=== PATIENT | male | born 1965 | race Caucasian/White ===

== ENCOUNTER 2019-09-15 00:22 | Emergency (ER) | payer OTHER ==
[~2019-09-15] VITALS: Ht 170.2 cm; Wt 107.5 kg
[~2019-09-15 00:22] MED LIST: CIPRO I.V.400 MG/201 PO; ULTRACET PO
[2019-09-15] MEDS ORDERED: CARVEDILOL12.5 M1 (00:37)
[2019-09-15] MEDS ORDERED: SIMVASTATIN80 MG (00:37)
[2019-09-15] MEDS ORDERED: GLIMEPIRIDE4 MG (00:37)
[2019-09-15] MEDS ORDERED: TRILIPIX135 MG (00:38)
[2019-09-15] MEDS ORDERED: FORTAMET1000 MG (00:38)
[2019-09-15] MEDS ORDERED: FARXIGA10 MG (00:38)
[2019-09-15] MEDS ORDERED: ALTACE10 MG (00:38)
[2019-09-15] MEDS ORDERED: ZYNCOF 20-400120 ML PO (04:57)
[2019-09-15] MEDS ORDERED: ALBUTEROL2.5 MG/3 M IH (04:57)
[2019-09-15] MEDS ORDERED: KETO10TA2 PO (04:57)
[2019-09-15] MEDS ORDERED: ZITHROMAX500 MG PO (04:57)
== END 2019-09-15 05:22 | disposition home or self-care (01) ==
LOC: ER 00:22
DX: J40 Bronchitis, not specified as acute or chronic (principal); K05.319 Chronic periodontitis, localized, unspecified severity

== ENCOUNTER → 2020-12-25 08:00 | Outpatient (CLI) | payer OTHER ==
[~2020-12-25 08:00] MED LIST changes: +ALBUTEROL2.5 MG/3 M IH; +ALTACE10 MG; +CARVEDILOL12.5 M1; +FARXIGA10 MG; +FORTAMET1000 MG; +GLIMEPIRIDE4 MG; +KETO10TA2 PO; +SIMVASTATIN80 MG; +TRILIPIX135 MG; +ZITHROMAX500 MG PO; +ZYNCOF 20-400120 ML PO
== END | disposition home or self-care (01) ==
LOC: PPH VACUNA 08:00
DX: Z23 Encounter for immunization (principal)

== ENCOUNTER 2022-04-25 23:50 | Emergency (ER) | payer OTHER ==
[~2022-04-25] VITALS: Ht 170.2 cm; Wt 103.0 kg
== END 2022-04-26 03:55 | disposition home or self-care (01) ==
LOC: ER 23:50
DX: E86.0 Dehydration (principal); Z91.013 Allergy to seafood; I10 Essential (primary) hypertension; E11.9 Type 2 diabetes mellitus without complications; Z79.84 Long term (current) use of oral hypoglycemic drugs

== ENCOUNTER 2024-03-09 16:17 | Inpatient (IN) | payer OTHER ==
[~2024-03-09] VITALS: Ht 177.8 cm; Wt 95.3 kg
[2024-03-09] MEDS ORDERED: KETOROLAC TROMETHAMINE 15 MG VIAL IV STA (19:01)
[2024-03-09] MEDS ORDERED: 0.9 % SODIUM CHLORIDE 1,000 ML IV STA (19:01)
[2024-03-09] MEDS ORDERED: KETOROLAC TROMETHAMINE 30 MG VIAL ONE (19:08)
[2024-03-09 20:06] LABS: HEMATOCRIT 45.7 % (39.0-48.0); HEMOGLOBIN 15.7 g/dL (13-16.00); MEAN CELL VOLUME 85.9 fL (80.0-100.00); MEAN CORPUSCULAR HEMOGLOBIN 29.4 pg (27.00-32.0); MEAN CORPUSCULAR HGB CONC 34.3 g/dl (32.0-36.0); PLATELET COUNT 234 K/uL (150-450); RED BLOOD COUNT 5.32 M/uL (4.00-6.00)
[2024-03-09 20:19] LABS: PH,URINE 5.5 (5.0-8.0); URINE APPEARANCE Clear; URINE BILIRRUBIN Small (NEGATIVE); URINE BLOOD Negative; URINE COLOR Orange; URINE GLUCOSE Negative (NEGATIVE); URINE LEUKOCYTE Trace; URINE NITRATE Negative; URINE PROTEIN Trace (NEGATIVE)
[2024-03-09 20:25] LABS: URINE BACTERIA 6.2 uL (0.0-1933); URINE WBC 4.1 uL (0.0-23.2)
[2024-03-09 20:49] LABS: ALBUMIN 2.8 gm/dL (3.4-5.0); BILIRUBIN TOTAL 1.35 mg/dL (0.3-1.2); CALCIUM 8.5 mg/dL (8.5-10.1); CREATININE SERUM 0.62 mg/dL (0.70-1.30); GFR 132.33; GLOBULINA 3.9 G/DL (2.4-3.5); POTASSIUM 4.5 mEq/L (3.5-5.1); TOTAL PROTEIN 6.7 gm/dL (6.4-8.2)
[2024-03-09] MEDS ORDERED: DIPHENHYDRAMINE HCL 50 MG/ML VIAL 1ML IV STA (22:33)
[2024-03-09] MEDS ORDERED: METHYLPREDNISOLONE SOD SUCC 125 MG VIAL IV STA (22:34)
[2024-03-09] MEDS ORDERED: DIPHENHYDRAMINE HCL 50 MG/ML VIAL 1ML ONE (22:39)
[2024-03-09] MEDS ORDERED: METHYLPREDNISOLONE SOD SUCC 125 MG VIAL ONE (22:40)
[2024-03-09] MEDS ORDERED: FUROsemide 20 MG/2 ML VIAL IV SCH (22:55)
[2024-03-09] MEDS ORDERED: INSULIN LISPRO 1,000 UNIT/10 ML UNITS SUBCUTANEO PRN (23:00)
[2024-03-09] MEDS ORDERED: LACTULOSE 20 G/30 ML BLIST.PACK PO ONE (23:00)
[2024-03-09] MEDS ORDERED: DEXTROSE 50 % IN WATER 0.5 G/ML DISP.SYRIN IV PRN (23:00)
[2024-03-09] MEDS ORDERED: MORPHINE SULFATE 2 MG/ML CARTRIDGE IV PRN (23:00)
[2024-03-10] MEDS ORDERED: ALBUMIN HUMAN-25 0.25GM/ML (50ML) VIAL IV SCH (01:00)
[2024-03-10 02:35] LABS: D DIMER 2.72 MG/L; PARTIAL THROMBOPLASTIN TIME 33.5 SECONDS (22.0-34.0)
[2024-03-10 02:36] LABS: INR 1.17; PROTHROMBIN TIME 12.1 SECONDS (9.0-11.5)
[2024-03-10 03:03] LABS: ALBUMIN 2.6 gm/dL (3.4-5.0); BILIRUBIN TOTAL 1.03 mg/dL (0.3-1.2); BILIRUBIN,CONJUGATED 0.47 mg/dL (0.0-0.2); BILIRUBIN,UNCONJUGATED 0.56 mg/dL (0.0-0.6); TOTAL PROTEIN 6.2 gm/dL (6.4-8.2)
[2024-03-10] MEDS ORDERED: LACTULOSE 20 G/30 ML BLIST.PACK ONE (03:52)
[2024-03-10] MEDS ORDERED: FUROsemide 20 MG/2 ML VIAL ONE (03:52)
[2024-03-10] MEDS ORDERED: SPIRONOLACTONE 25 MG TABLET PO SCH (09:00)
[2024-03-10] MEDS ORDERED: PANTOPRAZOLE SODIUM 40 MG/VIAL VIAL IV SCH (09:00)
[2024-03-10] MEDS ORDERED: RAMIPRIL 5 MG CAPSULE PO SCH (09:00)
[2024-03-10] MEDS ORDERED: DEXTROSE 50 % IN WATER 0.5 G/ML VIAL IV PRN (09:30)
[2024-03-10] MEDS ORDERED: KETOROLAC TROMETHAMINE 30 MG VIAL IV PRN (15:30)
[2024-03-10] MEDS ORDERED: SIMVASTATIN 40 MG TABLET PO SCH (17:00)
[2024-03-10 19:28] LABS: TP PERITONEAL FLUID 3.3 g/dl
[2024-03-10] MEDS ORDERED: TRAMADOL HCL 50 MG TABLET PO SCH (21:00)
[2024-03-12] MEDS ORDERED: METHYLPREDNISOLONE SOD SUCC 125 MG VIAL IV SCH (13:45)
[2024-03-12] MEDS ORDERED: DIPHENHYDRAMINE HCL 50 MG/ML VIAL 1ML IV SCH (13:45)
[2024-03-13] MEDS ORDERED: METHYLPREDNISOLONE SOD SUCC 125 MG VIAL IV NR (08:30)
[2024-03-13] MEDS ORDERED: DIPHENHYDRAMINE HCL 50 MG/ML VIAL 1ML IV NR (08:30)
[2024-03-13] MEDS ORDERED: TRAMADOL HCL 50 MG TABLET PO SCH (13:00)
[2024-03-13] MEDS ORDERED: SPIRONOLACTONE 50 MG TABLET PO SCH (17:00)
[2024-03-13] MEDS ORDERED: LACTULOSE 20 G/30 ML BLIST.PACK PO SCH (21:00)
[2024-03-14] MEDS ORDERED: PANTOPRAZOLE SODIUM 40 MG TABLET.DR PO SCH (09:00)
[2024-03-14 12:44] LABS: HEMATOCRIT 46.3 % (39.0-48.0); HEMOGLOBIN 15.7 g/dL (13-16.00); MEAN CELL VOLUME 85.1 fL (80.0-100.00); MEAN CORPUSCULAR HEMOGLOBIN 28.8 pg (27.00-32.0); MEAN CORPUSCULAR HGB CONC 33.8 g/dl (32.0-36.0); PLATELET COUNT 187 K/uL (150-450); RED BLOOD COUNT 5.44 M/uL (4.00-6.00); RED CELL DISTRIBUTION WIDTH 13.2 % (11.5-14.5)
[2024-03-14 13:08] LABS: ALBUMIN 2.9 gm/dL (3.4-5.0); BILIRUBIN TOTAL 0.59 mg/dL (0.3-1.2); CALCIUM 8.8 mg/dL (8.5-10.1); CREATININE SERUM 0.69 mg/dL (0.70-1.30); GFR 116.96; GLOBULINA 3.6 G/DL (2.4-3.5); POTASSIUM 3.84 mEq/L (3.5-5.1); TOTAL PROTEIN 6.5 gm/dL (6.4-8.2)
[2024-03-14] MEDS ORDERED: FentaNYL CITRATE/PF 50MCG/ML 2ML VIAL IJ ONE (18:30)
[2024-03-14] MEDS ORDERED: MIDAZOLAM HCL 2 MG/2 ML VIAL IV PUSH ONE (18:30)
== END 2024-03-15 12:07 | disposition home or self-care (01) | DRG 375 ==
LOC: ER 16:18 → MEDJ 22:54 → SEC-K 22:54 → MEDJ 03-10 01:17
PROVIDERS: Emergency Medicine; General Practice; Radiology Vascular & Interventional Radiology; ADMIT Internal Medicine; ATTEND Internal Medicine
PROC: BW21ZZZ Computerized Tomography (CT Scan) of Abdomen and Pelvis (ICD-10-PCS; 2024-03-09)
PROC: BW21YZZ Computerized Tomography (CT Scan) of Abdomen and Pelvis using Other Contrast (ICD-10-PCS; 2024-03-09)
PROC: 0W9G3ZZ Drainage of Peritoneal Cavity, Percutaneous Approach (ICD-10-PCS; principal; 2024-03-10)
PROC: BW30ZZZ Magnetic Resonance Imaging (MRI) of Abdomen (ICD-10-PCS; 2024-03-11)
PROC: 0FB13ZX Excision of Right Lobe Liver, Percutaneous Approach, Diagnostic (ICD-10-PCS; 2024-03-14)
DX: C48.2 Malignant neoplasm of peritoneum, unspecified (principal); C22.0 Liver cell carcinoma; K70.31 Alcoholic cirrhosis of liver with ascites; E11.65 Type 2 diabetes mellitus with hyperglycemia; F10.21 Alcohol dependence, in remission; F17.200 Nicotine dependence, unspecified, uncomplicated; I10 Essential (primary) hypertension; Z74.01 Bed confinement status; Z79.84 Long term (current) use of oral hypoglycemic drugs
CPT/HCPCS: 74185

== ENCOUNTER 2024-03-23 16:14 | Inpatient (IN) | payer OTHER ==
[2024-03-23 17:20] LABS: HEMOGLOBIN 16.5 g/dL (13-16.00); MEAN CELL VOLUME 83.6 fL (80.0-100.00); MEAN CORPUSCULAR HEMOGLOBIN 28.7 pg (27.00-32.0); MEAN CORPUSCULAR HGB CONC 34.4 g/dl (32.0-36.0); PLATELET COUNT 308 K/uL (150-450); RED BLOOD COUNT 5.74 M/uL (4.00-6.00); RED CELL DISTRIBUTION WIDTH 12.5 % (11.5-14.5)
[2024-03-23 17:24] LABS: ALBUMIN 2.8 gm/dL (3.4-5.0); BILIRUBIN TOTAL 1.06 mg/dL (0.3-1.2); CALCIUM 8.3 mg/dL (8.5-10.1); CREATININE SERUM 0.86 mg/dL (0.70-1.30); GFR 90.71; GLOBULINA 3.8 G/DL (2.4-3.5); POTASSIUM 5.41 mEq/L (3.5-5.1); TOTAL PROTEIN 6.6 gm/dL (6.4-8.2)
[2024-03-23 17:25] LABS: INR 1.16; PARTIAL THROMBOPLASTIN TIME 34.4 SECONDS (22.0-34.0)
[2024-03-23] MEDS ORDERED: AMINO ACIDS/PROTEIN HYDROLYS 30 ML BLIST.PACK PO SCH (18:04)
[2024-03-23] MEDS ORDERED: MORPHINE SULFATE 4 MG/ML CARTRIDGE IV PRN (18:15)
[2024-03-23] MEDS ORDERED: RINGERS SOLUTION,LACTATED 1,000 ML IV SCH (18:15)
[2024-03-23] MEDS ORDERED: fentaNYL 25 MCG PATCH.TD72 TD STA (18:22)
[2024-03-23] MEDS ORDERED: TEMAZEPAM 15 MG CAPSULE PO SCH (21:00)
[2024-03-23] MEDS ORDERED: FUROsemide 20 MG/2 ML VIAL IV SCH (21:00)
[2024-03-24] MEDS ORDERED: SPIRONOLACTONE 50 MG TABLET PO SCH (09:00)
[2024-03-24] MEDS ORDERED: 0.9 % SODIUM CHLORIDE 1,000 ML IV SCH (10:31)
[2024-03-24 12:46] LABS: CALCIUM 8.2 mg/dL (8.5-10.1); CREATININE SERUM 0.68 mg/dL (0.70-1.30); GFR 118.95; POTASSIUM 4.6 mEq/L (3.5-5.1)
[2024-03-24] MEDS ORDERED: BUTALB/ACETAMINOPHEN/CAFFEINE 1 TAB TABLET PO STA (19:06)
[2024-03-24] MEDS ORDERED: BUTALB/ACETAMINOPHEN/CAFFEINE 1 TAB TABLET PO PRN (19:15)
[2024-03-25] MEDS ORDERED: LACTULOSE 20 G/30 ML BLIST.PACK PO STA (19:55)
[2024-03-25] MEDS ORDERED: LACTULOSE 20 G/30 ML BLIST.PACK PO SCH (19:55)
[2024-03-26 08:35] LABS: HEMATOCRIT 47.5 % (39.0-48.0); HEMOGLOBIN 16.3 g/dL (13-16.00); MEAN CELL VOLUME 83.6 fL (80.0-100.00); MEAN CORPUSCULAR HEMOGLOBIN 28.7 pg (27.00-32.0); MEAN CORPUSCULAR HGB CONC 34.4 g/dl (32.0-36.0); PLATELET COUNT 246 K/uL (150-450); RED BLOOD COUNT 5.68 M/uL (4.00-6.00)
[2024-03-26 08:38] LABS: ALBUMIN 2.4 gm/dL (3.4-5.0); BILIRUBIN TOTAL 1.02 mg/dL (0.3-1.2); CALCIUM 8.3 mg/dL (8.5-10.1); CREATININE SERUM 0.62 mg/dL (0.70-1.30); GFR 132.33; GLOBULINA 3.4 G/DL (2.4-3.5); POTASSIUM 5.11 mEq/L (3.5-5.1); TOTAL PROTEIN 5.8 gm/dL (6.4-8.2)
[2024-03-26 08:43] LABS: INR 1.06; PROTHROMBIN TIME 11.1 SECONDS (9.0-11.5)
[2024-03-26] MEDS ORDERED: TRAMADOL HCL 50 MG TABLET PO STA (14:28)
[2024-03-26] MEDS ORDERED: NA PHOS,M-B/NA PHOS,DI-BA 1 BOTTLE ENEMA RECTAL STA (15:46)
[2024-03-26] MEDS ORDERED: fentaNYL 25 MCG PATCH.TD72 TD SCH (18:00)
[2024-03-26] MEDS ORDERED: TRAMADOL HCL 50 MG TABLET PO SCH ×2 (21:00)
[2024-03-27 07:09] LABS: CALCIUM 8.3 mg/dL (8.5-10.1); CREATININE SERUM 0.64 mg/dL (0.70-1.30); GFR 127.57; POTASSIUM 4.91 mEq/L (3.5-5.1)
[2024-03-27] MEDS ORDERED: HEPARIN SODIUM,PORCINE 5,000 UNITS/ML VIAL ONE (23:40)
[2024-03-30] MEDS ORDERED: MORPHINE SULFATE 4 MG/ML CARTRIDGE IV PRN (12:45)
[2024-03-30] MEDS ORDERED: TRAMADOL HCL 50 MG TABLET PO STA (17:01)
[2024-03-30] MEDS ORDERED: MAG HYDROX/ALUMINUM HYD/SIMETH 30 ML BLIST.PACK PO STA (18:25)
[2024-03-30] MEDS ORDERED: BUTALB-ACETAMI1 EAC2 PO (18:27)
[2024-03-30] MEDS ORDERED: RESTORIL15 MG PO (18:28)
[2024-03-30] MEDS ORDERED: TRAMADOL HCL50 MG PO (18:29)
[2024-03-30] MEDS ORDERED: MORPHINE SULFATE 4 MG/ML CARTRIDGE IV SCH (18:30)
[2024-03-30] MEDS ORDERED: LACTULOSE10 GM/152 PO (18:30)
[2024-03-30] MEDS ORDERED: FENTANYL1 EAC3 TD (18:30)
[2024-03-30] MEDS ORDERED: PROTEINEX-18 LI30 ML PO (18:31)
[2024-03-31] MEDS ORDERED: TRAMADOL HCL 50 MG TABLET PO SCH (01:00)
== END 2024-03-30 20:19 | disposition home or self-care (01) | DRG 436 ==
LOC: SURH 16:14 → MEDI 16:14 → SURH 03-25 11:17
PROVIDERS: ADMIT Internal Medicine Hematology & Oncology; ATTEND Internal Medicine Hematology & Oncology
PROC: 0W9G3ZZ Drainage of Peritoneal Cavity, Percutaneous Approach (ICD-10-PCS; principal; 2024-03-24)
DX: C22.0 Liver cell carcinoma (principal); E87.1 Hypo-osmolality and hyponatremia; J91.0 Malignant pleural effusion; G89.3 Neoplasm related pain (acute) (chronic); E11.65 Type 2 diabetes mellitus with hyperglycemia; I10 Essential (primary) hypertension; K59.09 Other constipation; K70.31 Alcoholic cirrhosis of liver with ascites
CPT/HCPCS: 240

== ENCOUNTER 2024-04-02 13:29 | Inpatient (IN) | payer OTHER ==
[~2024-04-02] VITALS: Ht 170.2 cm; Wt 83.9 kg
[~2024-04-02 13:29] MED LIST changes: +BUTALB-ACETAMI1 EAC2 PO; +FENTANYL1 EAC3 TD; +LACTULOSE10 GM/152 PO; +PROTEINEX-18 LI30 ML PO; +RESTORIL15 MG PO; +TRAMADOL HCL50 MG PO
--- NOTE | 2024-04-02 13:54 | NUR ---
SE RECIBE PTE ALERTA Y ORIENTADO X3 LLEGA EN AMBULANCIA, REFIERE SENTIR NO PODER RESPIRAR. SE LE REALIZA SV SATURACION EN 92%. SE LE REALIZA EKG. PTE REFIERE TENER CANCER DE HIGADO.
[2024-04-02] MEDS ORDERED: NOREPINEPHRINE BITARTRATE 1 MG/ML AMPUL IV ONE ×2 (14:30→14:31)
--- NOTE | 2024-04-02 14:48 | NUR ---
SE RECIBE PACIENTE MASCULINO ALERTA Y ORIENTADO X3, SE COLOCA EN LA CAMA #03 CON BARANDAS ELEVADAS. SE CONECTA A MONITOR CARDIACO Y OXIEMTRIA DE PULSO. SE CANALIZA EN BRAZO DERECHO CON ANGIO #20 SE LE COLOCA LEVOPHED 8MG/250ML D/W 5% BAJANDO A 20ML/HR Y SEGUNDA VENOPUNCION CON ANGIO #20 Y SE LE COLOCA H/L PATENTES LIBRES DE EDEMA Y ENROJECIMIENTO. SE LE JANIE LAS MUETRAS Y SE LE REALIZA EGK Y SE NOTIFICA PARA REALIZAR CT HEATHER LA ORDEN MEDICA.
[2024-04-02 15:19] LABS: HEMATOCRIT 46.2 % (39.0-48.0); HEMOGLOBIN 15.7 g/dL (13-16.00); MEAN CELL VOLUME 83.3 fL (80.0-100.00); MEAN CORPUSCULAR HEMOGLOBIN 28.4 pg (27.00-32.0); PLATELET COUNT 247 K/uL (150-450); RED BLOOD COUNT 5.54 M/uL (4.00-6.00); RED CELL DISTRIBUTION WIDTH 13.3 % (11.5-14.5)
--- NOTE | 2024-04-02 15:34 | NUR ---
SE RECIBE A PTE EN ICU-2. PTE ALERTA Y ORIENTADO X3. SE OBSERVA CONECTADO A MONITOR CARDIACO Y OXIMENTRIA DE PULSO. PTE CON GISSELL INTACTO, CON VENTURY MASK A 50%. PTE CON VENOPUNCIONES EN MANO RT CON ANGIO 20 X2 CON DRIP DE LEVOPHED 8MG/250ML BAJANDO A 20ML/HR. SE OBSERVA ABDOMEN DISTENDIDO. PTE PENDIENTE A CT ABDOMINAL, ENTREGA DE U/A. 1500 SE REALIZAN V/S Y SE DOCUMENTAN, SE REALIZA ABG POR TR BAJO MEDIDAS ASEPTICAS. 1540 PTE REFIERE NAUSEA, SE NOTIFICA A MD CUAL EMITE ORDEN Y SE EJECUTA LA MISMA.
[2024-04-02 15:41] LABS: INR 1.11; PARTIAL THROMBOPLASTIN TIME 33.9 SECONDS (22.0-34.0); PROTHROMBIN TIME 11.6 SECONDS (9.0-11.5)
[2024-04-02 15:50] LABS: ABG PH 7.359 (7.35-7.45); ABG pCO2 29.1 mmHg (35-45); BASE EXCESS -7.9 mmol/l; SaO2 98.4 %; Tco2 16.9 mmol/l
[2024-04-02 15:55] LABS: ALBUMIN 2.4 gm/dL (3.4-5.0); BILIRUBIN TOTAL 0.67 mg/dL (0.3-1.2); CALCIUM 8.8 mg/dL (8.5-10.1); GLOBULINA 4.5 G/DL (2.4-3.5); TOTAL PROTEIN 6.9 gm/dL (6.4-8.2)
[2024-04-02 15:59] LABS: GFR 14.08
[2024-04-02 16:15] LABS: allen test SATISFACTORY; o2 50 %; puncture site RADIAL RIGHT
[2024-04-02 16:19] LABS: CREATININE SERUM 4.32 mg/dL (0.70-1.30); POTASSIUM 7.26 mEq/L (3.5-5.1)
[2024-04-02] MEDS ORDERED: DEXTROSE 50 % IN WATER 0.5 G/ML VIAL IV ONE ×2 (16:30→17:42)
[2024-04-02] MEDS ORDERED: SODIUM POLYSTYRENE SULFONATE 15 G/4 TSP TSP PO ONE (16:30)
[2024-04-02] MEDS ORDERED: CALCIUM GLUCONATE 100 MG/ML VIAL IV ONE (16:30)
[2024-04-02] MEDS ORDERED: INSULIN REGULAR, HUMAN 1,000 UNIT/10 ML UNITS IV ONE (16:30)
[2024-04-02] MEDS ORDERED: ALBUMIN HUMAN-25 0.25GM/ML (50ML) VIAL IV SCH (17:34)
[2024-04-02] MEDS ORDERED: TAMSULOSIN HCL 0.4 MG CAP PO ONE (17:37)
[2024-04-02] MEDS ORDERED: CALCIUM GLUCONATE 100 MG/ML VIAL ONE (17:37)
[2024-04-02] MEDS ORDERED: MEROPENEM 500 MG/VIAL VIAL IV SCH (17:44)
[2024-04-02] MEDS ORDERED: 0.9 % SODIUM CHLORIDE 1,000 ML IV SCH (17:45)
[2024-04-02] MEDS ORDERED: IPRATROPIUM BROMIDE 0.5 MG/2.5 ML AMPUL.NEB IH SCH (17:48)
[2024-04-02] MEDS ORDERED: LEVALBUTEROL HCL 0.63 MG/3 ML SOLUTION IH SCH (17:49)
[2024-04-02] MEDS ORDERED: METHYLPREDNISOLONE SOD SUCC 125 MG VIAL IV ONE (18:00)
[2024-04-02] MEDS ORDERED: IPRATROPIUM BROMIDE 0.5 MG/2.5 ML AMPUL.NEB IH ONE (18:35)
[2024-04-02] MEDS ORDERED: LEVALBUTEROL HCL 0.63 MG/3 ML SOLUTION IH ONE (18:35)
[2024-04-02] MEDS ORDERED: METHYLPREDNISOLONE SOD SUCC 40 MG VIAL ONE (20:41)
[2024-04-02 20:45] LABS: URINE APPEARANCE Cloudy; URINE BILIRRUBIN Small (NEGATIVE); URINE BLOOD Negative; URINE COLOR Dark Yellow; URINE GLUCOSE Negative (NEGATIVE); URINE LEUKOCYTE Trace; URINE NITRATE Negative; URINE PROTEIN 30 (NEGATIVE); URINE UROBILINOGEN 0.2 E.U./dl
[2024-04-02 20:47] LABS: URINE BACTERIA 401.9 uL (0.0-1933); URINE RBC 45.9 uL (0.0-20.8); URINE WBC 17.3 uL (0.0-23.2)
[2024-04-02 21:22] LABS: PHOSPHOROUS 8.2 mg/dL (2.5-4.9)
[2024-04-02] MEDS ORDERED: SODIUM BICARBONATE 100 MEQ in SODIUM CHLORIDE 0.45 % 1,000 ML IV ONE (21:30)
[2024-04-02] MEDS ORDERED: TRAMADOL HCL 50 MG TABLET PO PRN (21:30)
[2024-04-02] MEDS ORDERED: SODIUM BICARBONATE 50MEQ/50ML VIAL IV ONE ×2 (21:44→21:57)
[2024-04-03] MEDS ORDERED: LACTULOSE 10 G/15 ML ML PO SCH ×2 (09:00)
[2024-04-03] MEDS ORDERED: AMINO ACIDS/PROTEIN HYDROLYS 30 ML BLIST.PACK PO SCH (09:00)
[2024-04-03] MEDS ORDERED: SODIUM POLYSTYRENE SULFONATE 15 G/4 TSP TSP PO SCH ×2 (09:00)
[2024-04-03] MEDS ORDERED: TAMSULOSIN HCL 0.4 MG CAP PO SCH (09:00)
[2024-04-03] MEDS ORDERED: PANTOPRAZOLE SODIUM 40 MG/VIAL VIAL IV SCH (09:00)
== END 2024-04-03 08:04 | disposition expired | DRG 436 ==
LOC: ER 13:29 → SEC-K 18:04 → MEDJ 18:04 → SEC-K 04-03 00:10
PROVIDERS: General Practice; ADMIT Internal Medicine; ATTEND Internal Medicine
PROC: BB24ZZZ Computerized Tomography (CT Scan) of Bilateral Lungs (ICD-10-PCS; principal; 2024-04-02)
PROC: 3E0F7GC Introduction of Other Therapeutic Substance into Respiratory Tract, Via Natural or Artificial Opening (ICD-10-PCS; 2024-04-02)
PROC: 4A033R1 Measurement of Arterial Saturation, Peripheral, Percutaneous Approach (ICD-10-PCS; 2024-04-02)
PROC: 0BH17EZ Insertion of Endotracheal Airway into Trachea, Via Natural or Artificial Opening (ICD-10-PCS; 2024-04-02)
DX: C22.0 Liver cell carcinoma (principal); R18.0 Malignant ascites; Z66 Do not resuscitate; Z20.822 Contact with and (suspected) exposure to COVID-19; I46.9 Cardiac arrest, cause unspecified